=== PATIENT | male | born 1980 | race Caucasian/White ===

== ENCOUNTER 2024-04-09 13:17 | Emergency (ER) | payer MEDICAID ==
[~2024-04-09] VITALS: Ht 167.6 cm; Wt 89.9 kg
[2024-04-09 13:27] VITALS: TEMP 98
[2024-04-09 15:55] LABS: BASOPHILS # (AUTO) 0.1 X10'3 (0-0.2); EOSINOPHILS # (AUTO) 0.2 X10'3 (0-0.9); MEAN CORPUSCULAR HEMOGLOBIN 30.9 PG (27.0-31.0)
[2024-04-09 15:58] LABS: ALBUMIN 3.3 G/DL (3.4-5.0); ANION GAP 3 (8-16); BASOPHILS % (AUTO) 0.7 % (0-1); BLOOD UREA NITROGEN 13 MG/DL (7-18); BUN/CREATININE RATIO 7.8 (10.0-20.0); CALCIUM 9.4 MG/DL (8.5-10.1); CHLORIDE 100 MMOL/L (99-107); CREATININE 1.67 MG/DL (0.60-1.10); EOSINOPHILS % (AUTO) 1.4 % (0-6); GLUCOSE 103 MG/DL (70-104); HEMATOCRIT 44.4 % (42.0-52.0); HEMOGLOBIN 14.9 g/dl (14.0-17.9); LYMPHOCYTES # (AUTO) 1.4 X10'3 (1.1-4.8); LYMPHOCYTES % (AUTO) 11.6 % (21-51); MEAN CORPUSCULAR HGB CONC 33.6 g/dL (33.0-36.5); MEAN CORPUSCULAR VOLUME 91.9 FL (78-98); MEAN PLATELET VOLUME 8.5 FL (7.4-10.4); MONOCYTES # (AUTO) 1.1 X10'3 (0-0.9); MONOCYTES % (AUTO) 9.2 % (2-12); NEUTROPHILS # (AUTO) 9.6 X10'3 (1.8-7.7); NEUTROPHILS % (AUTO) 77.1 % (42-75); PLATELET COUNT 249 X10'3 (140-440); POTASSIUM 3.9 MMOL/L (3.5-5.1); RED BLOOD COUNT 4.83 X10'6 (4.70-6.10); RED CELL DISTRIBUTION WIDTH 14.3 % (11.5-14.5); SODIUM 134 MMOL/L (135-145); TOTAL CARBON DIOXIDE 31.3 MMOL/L (24-32); WHITE BLOOD COUNT 12.4 X10'3 (4.5-11.0); eCRCL 52 ML/MIN; eGFR 45 ML/MIN
[2024-04-09] MEDS ORDERED: AMOX-117 PO (16:28)
[2024-04-09] MEDS: amox tr/potassium clavulanate 875/125mg TAB PO ONE (16:38)
[2024-04-09 17:59] VITALS: BP 129/87; PULSE 98; RESP 16; O2SAT 93
== END 2024-04-09 18:01 | disposition home or self-care (01) ==
LOC: ER 13:18
DX: R59.1 Generalized enlarged lymph nodes (principal); L03.115 Cellulitis of right lower limb; Z79.2 Long term (current) use of antibiotics
CPT/HCPCS: 36415; 80048; 83605; 84145; 85025; 87040; 93971; 99284